=== PATIENT | female | born 1960 | race Caucasian/White ===

== ENCOUNTER → 2019-05-04 | Outpatient (CLI) | payer BC ==
[~2019-05-04] MED LIST: ASCO-262 PO; CA C1TAB26 PO; DOCU100T7 PO; FERR-57 PO; IBP600T1 PO; IRON PO; LEVO500T69 PO; MELO-195 PO; MULT-305 PO; NAPR220C11 PO; OMEG100T PO; OXYC-12 PO; PYRI50CA PO; SENN-35 PO; TRAN650T2 PO; [UNRECOGNIZED DRUG - OTHER] PO
--- NOTE | 2019-05-04 14:51 | Diagnostic Imaging Report ---
PROCEDURE: US Thyroid. TECHNIQUE: Multiple real-time grayscale images were obtained of the thyroid in various projections. INDICATION: Thyromegaly COMPARISON: There are no prior studies available for comparison. FINDINGS: The thyroid gland is prominent but not definitely enlarged. The right lobe measures 4.9 x 1.2 x 1.9 cm and the left lobe is estimated to be 4.2 x 1.4 x 1.4 cm (normal gland size 4/5 x 2 x 2 cm or less). The right lobe of the thyroid is homogeneous. There is a small 5 x 4 x 4 mm area of mixed density in the left lobe of the thyroid. This is of uncertain etiology, although most likely a benign process. IMPRESSION: 1. The thyroid gland is prominent and there is a small subcentimeter nodule of mixed density in the left lobe. 2. If further evaluation is desired, then a short-term (six-month) follow-up thyroid ultrasound exam should be obtained. Dictated by: Dictated on workstation # [id number]
== END ==
LOC: RAD 13:50
PROVIDERS: ATTEND Nurse Practitioner Family
DX: E04.1 Nontoxic single thyroid nodule (principal)
CPT/HCPCS: 76536

== ENCOUNTER → 2019-08-22 | Outpatient (CLI) | payer BC ==
--- NOTE | 2019-08-22 14:09 | Diagnostic Imaging Report ---
PROCEDURE: US Thyroid. TECHNIQUE: Multiple real-time grayscale images were obtained of the thyroid in various projections. INDICATION: Thyromegaly. Correlation is made with prior thyroid ultrasound from 05/04/2019. Right lobe of thyroid measures 5.3 x 1.7 x 1.5 cm and the left lobe measures 4.2 x 1.3 x 1.4 cm. The isthmus is 4 mm in thickness. Both lobes are fairly homogeneous in echotexture. There is a small nodule midportion left lobe approximately 4 mm in size, stable when compared with examination from 3 months earlier. No dominant mass is detected. IMPRESSION: Stable thyroid ultrasound when compared with examination from 3 months earlier. Dictated by: Dictated on workstation # [id number]
== END ==
LOC: RAD 12:36
PROVIDERS: ATTEND Nurse Practitioner Family
DX: E01.0 Iodine-deficiency related diffuse (endemic) goiter (principal)
CPT/HCPCS: 76536

== ENCOUNTER → 2020-06-28 | Outpatient (CLI) | payer BC ==
[2020-06-28 16:40] LABS: MEAN PLATELET VOLUME 10.1 fL (9.0-12.2)
--- NOTE | 2020-06-28 16:57 | Diagnostic Imaging Report ---
INDICATION: Hypoxemia EXAM: PA and lateral chest FINDINGS: Heart size and pulmonary vascularity are normal. Lungs are clear. There are no effusions or pneumothoraces. IMPRESSION: Negative chest Dictated by: Dictated on workstation # [id number]
== END ==
LOC: LAB 15:38
PROVIDERS: ATTEND Nurse Practitioner Family
DX: R09.02 Hypoxemia (principal); R07.89 Other chest pain; R06.09 Other forms of dyspnea
CPT/HCPCS: 36415; 71046; 85027; 85379; 85652; 86738; 86769

== ENCOUNTER → 2023-01-14 | Outpatient (CLI) | payer BC ==
--- NOTE | 2023-01-14 14:53 | Diagnostic Imaging Report ---
INDICATION: Palpable lump in the left axilla. Correlation is made with diagnostic mammogram earlier the same day. Sonographic interrogation of the area of lump in the left axilla was performed. No sonographic abnormality is detected. No solid or cystic mass is detected. IMPRESSION: No sonographic abnormality is detected. ACR BI-RADS Category 1: Negative. Result letter will be mailed to the patient. Note: At least 10% of breast cancer is not imaged by mammography. BI-RADS Category 1 Dictated by: Dictated on workstation # [id number]
--- NOTE | 2023-01-14 16:16 | Diagnostic Imaging Report ---
INDICATION: Palpable lump in the left axilla. Correlation is made with prior mammogram from 04/23/2021 and 02/22/2020. 2-D and 3-D bilateral diagnostic mammography was performed with CAD. Markers placed at the area of palpable abnormality in the left axilla. Scattered fibroglandular densities are identified bilaterally. No mass or malignant-appearing microcalcifications are identified. Axillae are unremarkable. Specifically, no underlying abnormality is identified at the area of palpable abnormality. IMPRESSION: No mammographic features suspicious for malignancy are identified. Even so, directed sonographic interrogation of the area of palpable abnormality in the left axilla is recommended and will be performed today. Dictated by: Dictated on workstation # [id number]
== END ==
LOC: RAD 12:31
PROVIDERS: ATTEND Nurse Practitioner Family
DX: N63.32 Unspecified lump in axillary tail of the left breast (principal)
CPT/HCPCS: 76642; 77066; G0279; 77062